=== PATIENT | male | born 1960 | race Native Hawaiian/Other Pacific Islander ===

== ENCOUNTER 2019-09-20 16:27 | Outpatient (CLI) | payer OTHER ==
[2019-09-20 17:01] LABS: PLATELET COUNT 172 K/uL (142-355)
[2019-09-20 17:35] LABS: POTASSIUM 4.4 mmol/L (3.6-5.2)
== END 2019-09-20 19:09 | disposition home or self-care (01) ==
LOC: LAB 16:27
PROVIDERS: Nurse Practitioner Family
DX: Z00.00 Encounter for general adult medical examination without abnormal findings (principal); E78.5 Hyperlipidemia, unspecified; I73.9 Peripheral vascular disease, unspecified; Z86.39 Personal history of other endocrine, nutritional and metabolic disease; Z79.899 Other long term (current) drug therapy; R53.83 Other fatigue; R53.81 Other malaise
CPT/HCPCS: 80053; 80061; 82306; 82607; 83036; 84154; 84439; 84443; 85027; 86141

== ENCOUNTER 2019-09-28 08:12 | Outpatient (CLI) | payer OTHER ==
[2019-09-28] MEDS ORDERED: SIMV20TA2 PO (18:10)
[2019-09-28] MEDS ORDERED: METFORMIN HCL500 MG PO (18:11)
[2019-09-28] MEDS ORDERED: GLIM2TAB PO (18:13)
[2019-09-28] MEDS ORDERED: VITAMIN D1000 UNI1 PO (18:17)
== END 2019-09-28 19:32 | disposition home or self-care (01) ==
LOC: MRI 08:12
DX: M54.2 Cervicalgia (principal)

== ENCOUNTER 2019-09-28 14:00 | Inpatient (IN) | payer OTHER ==
[~2019-09-28] VITALS: Ht 188 cm; Wt 97.1 kg
[2019-09-28 14:35] VITALS: BP 161/83; TEMP 97.9
[2019-09-28 15:54] LABS: PLATELET COUNT 164 K/uL (142-355)
[2019-09-28 16:09] LABS: SODIUM 137 mmol/L (136-145)
[2019-09-28 16:15] VITALS: BP 161/83; TEMP 97.9; Ht 188 cm; Wt 97.1 kg
[2019-09-28] MEDS ORDERED: SIMV20TA2 PO (18:10)
[2019-09-28] MEDS ORDERED: METFORMIN HCL500 MG PO (18:11)
[2019-09-28] MEDS ORDERED: GLIM2TAB PO (18:13)
[2019-09-28] MEDS ORDERED: VITAMIN D1000 UNI1 PO (18:17)
[2019-09-28 20:00] VITALS: BP 168/77; TEMP 97.9
[2019-09-28 23:55] VITALS: BP 150/70; TEMP 97.5
[2019-09-29 04:00] VITALS: BP 146/76; TEMP 98.2
[2019-09-29 08:00] VITALS: BP 159/78; TEMP 97.3
[2019-09-29 16:00] VITALS: BP 181/81; TEMP 98.2
[2019-09-29 20:00] VITALS: BP 164/95; TEMP 98.1
[2019-09-30] VITALS: BP 177/78; TEMP 97.4
[2019-09-30 04:00] VITALS: BP 176/76; TEMP 98.1
[2019-09-30 16:00] VITALS: BP 143/75; TEMP 97.5
[2019-09-30 19:42] VITALS: BP 142/64; TEMP 97.9
[2019-10-01] VITALS: BP 138/66; TEMP 97.7
[2019-10-01 04:26] VITALS: BP 140/72; TEMP 98.1
[2019-10-01 08:00] VITALS: BP 142/68; TEMP 97.5
[2019-10-01 12:00] VITALS: BP 159/79; TEMP 98.1
[2019-10-01 16:00] VITALS: BP 144/75; TEMP 98
[2019-10-01 20:00] VITALS: BP 179/93; TEMP 97.9
[2019-10-02] VITALS: BP 108/63; TEMP 97.7
[2019-10-02 04:00] VITALS: BP 152/74; TEMP 98.1
[2019-10-02 05:15] LABS: PLATELET COUNT 132 K/uL (142-355)
[2019-10-02 05:29] LABS: POTASSIUM 4.1 mmol/L (3.6-5.2)
[2019-10-02 08:00] VITALS: BP 175/82; TEMP 98.6
[2019-10-02 12:00] VITALS: BP 170/80; TEMP 97.4
[2019-10-02 16:00] VITALS: BP 173/80; TEMP 97.8
[2019-10-02 20:00] VITALS: BP 178/80; TEMP 98.3
[2019-10-03] VITALS: BP 153/75; TEMP 97.8
[2019-10-03 04:00] VITALS: BP 153/73; TEMP 97.3
[2019-10-03 08:00] VITALS: BP 180/66; TEMP 97.7
[2019-10-03 12:00] VITALS: BP 168/84; TEMP 97.5
== END 2019-10-03 15:21 | disposition home or self-care (01) | DRG 68 ==
LOC: MED/SURG 14:00
PROVIDERS: Internal Medicine; ADMIT Family Medicine
DX: I65.22 Occlusion and stenosis of left carotid artery (principal); L03.116 Cellulitis of left lower limb; M47.12 Other spondylosis with myelopathy, cervical region; R53.1 Weakness; R27.0 Ataxia, unspecified; I70.203 Unspecified atherosclerosis of native arteries of extremities, bilateral legs; I10 Essential (primary) hypertension; I25.10 Atherosclerotic heart disease of native coronary artery without angina pectoris; E78.00 Pure hypercholesterolemia, unspecified; R63.4 Abnormal weight loss; M15.8 Other polyosteoarthritis; E11.42 Type 2 diabetes mellitus with diabetic polyneuropathy
CPT/HCPCS: 36415; 80053; 80202; 81000; 82150; 82550; 82607; 83605; 83690; 83880; 84443; 84484; 85027; 85379; 87040; 90715; 93005; A9576; J0712; J1650; J1815; J2930; J3370; Q9963

== ENCOUNTER 2020-02-22 08:25 | Outpatient (CLI) | payer OTHER ==
[~2020-02-22 08:25] MED LIST: GLIM2TAB PO; METFORMIN HCL500 MG PO; SIMV20TA2 PO; VITAMIN D1000 UNI1 PO
== END 2020-02-22 19:09 | disposition home or self-care (01) ==
LOC: NM 08:25
DX: S91.302A Unspecified open wound, left foot, initial encounter (principal)
CPT/HCPCS: A9561

== ENCOUNTER 2020-04-19 13:55 | Outpatient (CLI) | payer OTHER ==
[2020-04-19 15:43] LABS: PLATELET COUNT 204 K/uL (142-355)
[2020-04-19 16:07] LABS: POTASSIUM 4.5 mmol/L (3.6-5.2)
== END 2020-04-19 21:53 | disposition home or self-care (01) ==
LOC: LABW 13:55
PROVIDERS: Nurse Practitioner Family
DX: Z00.00 Encounter for general adult medical examination without abnormal findings (principal); L97.529 Non-pressure chronic ulcer of other part of left foot with unspecified severity; I10 Essential (primary) hypertension; G47.00 Insomnia, unspecified; E78.2 Mixed hyperlipidemia; I25.10 Atherosclerotic heart disease of native coronary artery without angina pectoris; E55.9 Vitamin D deficiency, unspecified; R53.81 Other malaise; Z79.899 Other long term (current) drug therapy
CPT/HCPCS: 80053; 80061; 82306; 82607; 83036; 84439; 84443; 85027

== ENCOUNTER 2020-09-29 11:05 | Outpatient (CLI) | payer OTHER | END 2020-09-29 22:21 | disposition home or self-care (01) | LOC: US 11:05 | PROVIDERS: ATTEND Surgery Vascular Surgery | DX: I65.23 Occlusion and stenosis of bilateral carotid arteries (principal) ==

== ENCOUNTER 2020-12-07 08:07 | Outpatient (CLI) | payer OTHER ==
[~2020-12-07] VITALS: Ht 188 cm; Wt 107.0 kg
[2020-12-07 08:53] LABS: PLATELET COUNT 103 K/uL (142-355)
[2020-12-07 09:06] LABS: POTASSIUM 3.9 mmol/L (3.6-5.2)
== END 2020-12-07 11:02 | disposition home or self-care (01) ==
LOC: INF 08:07
PROVIDERS: ATTEND Internal Medicine
DX: U07.1 COVID-19 (principal)
CPT/HCPCS: 36591; 80053; 85027; 96365; Q0239

== ENCOUNTER 2021-12-06 10:26 | Outpatient (CLI) | payer OTHER | END 2021-12-06 19:07 | disposition home or self-care (01) | LOC: RAD 10:26 | PROVIDERS: ATTEND Nurse Practitioner Family | DX: R11.10 Vomiting, unspecified (principal); R91.1 Solitary pulmonary nodule; R50.9 Fever, unspecified; M54.9 Dorsalgia, unspecified ==